=== PATIENT | female | born 1985 | race Caucasian/White ===

== ENCOUNTER 2017-12-04 08:55 | Emergency (ER) | payer OTHER ==
[2017-12-04 09:57] VITALS: BP 119/68
--- NOTE | 2017-12-04 10:04 | UC ---
Throat Pain/Nasal Avery HPI - HPI Summary HPI Summary: 32 yo female presents with ongoing sinus pain/pressure/congestion for the last month. She was initially placed on augmentin and had relief for 2-3 days before her symptoms returned. She waited and tried OTC nasal spray, mucinex, and zyrtec for 3 weeks until earlier this week. She saw her PCP 4 days ago and was placed on zpak which has provided her no relief. She is here because she feels her symptoms are getting worse and felt feverish today. Denies sore throat, cough, SOB, chest pain. - History of Current Complaint Chief Complaint: UCRespiratory Stated Complaint: CONGESTION, SINUSES Time Seen by Provider: 12/04/17 10:03 Hx Obtained From: Patient Hx Last Menstrual Period: 11/24/17 Onset/Duration: Gradual Onset Severity: Mild Pain Intensity: 3 Pain Scale Used: 0-10 Numeric - Allergies/Home Medications Allergies/Adverse Reactions: Allergies Allergy/AdvReac Type Severity Reaction Status Date / Time No Known Allergies Allergy Verified 12/04/17 09:48 Home Medications: Home Medications Azithromycin TAB* [Zithromax TAB (Z-MARCELA) 250 mg #6 tabs] 2 tab PO .TODAY, THEN 1 DAILY 12/04/17 [History Confirmed 12/04/17] Cetirizine* [ZyrTEC 10 MG TAB*] 10 mg DAILY 12/04/17 [History Confirmed 12/04/17 ] Fluticasone NASAL SPRAY 50MCG* [Flonase NASAL SPRAY 50MCG*] 2 spray QAM [History Confirmed 12/04/17] Nuvaring 1 applic ONCE 12/04/17 [History Confirmed 12/04/17] PMH/Surg Hx/FS Hx/Imm Hx - Additional Past Medical History Additional PMH: None Previously Healthy: Yes - Surgical History Surgical History: None - Family History Known Family History: Positive: None - Social History Occupation: Employed Full-time Lives: With Family Alcohol Use: Rare Substance Use Type: None Smoking Status (MU): Never Smoked Tobacco Review of Systems Constitutional: Negative Skin: Negative Eyes: Negative ENT: Nasal Discharge, Sinus Congestion, Sinus Pain/Tenderness Respiratory: Negative Cardiovascular: Negative Gastrointestinal: Negative Neurovascular: Negative Neurological: Negative Psychological: Negative All Other Systems Reviewed And Are Negative: Yes Physical Exam - Summary Physical Exam Summary: GENERAL: NAD. WDWN HEENT: NC/AT. Conjunctiva clear without inflammation or discharge. TMs intact , no bulging, erythema, or edema. Nasal mucosa moderately swollen and erythematous with yellow/clear discharge. TTP maxillary and frontal sinus. Posterior oropharynx without exudates, erythema, or tonsillar enlargement. Uvula midline. NECK: Supple without lymphadenopathy CHEST: CTAB. No r/r/w. No accessory muscle use. Breathing comfortably and in no distress. CV: RRR. Without m/r/g. Pulses intact. SKIN: No rashes, sores, lesions, or open wounds. NEURO: Alert. CN II-XII grossly intact. PSYCH: Age appropriate behavior. Triage Information Reviewed: Yes Vital Signs: Initial Vital Signs Temp 99.8 F 12/04/17 09:50 Pulse 88 12/04/17 09:50 Resp 16 12/04/17 09:50 BP 119/68 12/04/17 09:50 Pulse Ox 99 12/04/17 09:50 Throat Pain/Nasal Course/Dx - Course Course Of Treatment: Stop zpak and will try doxycycline. If symptoms persist - f /u with PCP for likely ENT referral. - Differential Dx/Diagnosis Provider Diagnoses: Sinusitis Discharge - Sign-Out/Discharge Documenting (check all that apply): Discharge/Admit/Transfer - Discharge Plan Condition: Stable Disposition: HOME Prescriptions: DOXYcycline CAP(*) [DOXYcycline 100MG CAP(*)] 100 mg PO BID #20 cap Patient Education Materials: Sinusitis (ED) Referrals: Marga Daniels NP [Primary Care Provider] - Additional Instructions: If you develop a fever, shortness of breath, chest pain, new or worsening symptoms - please call your PCP or go to the ED. - Billing Disposition and Condition Condition: STABLE Disposition: HOME
== END 2017-12-04 10:29 | disposition home or self-care (01) ==
LOC: UCCORT 08:55
DX: J32.9 Chronic sinusitis, unspecified (principal)
CPT/HCPCS: 99212; G0463